=== PATIENT | female | born 1985 | race Caucasian/White ===

== ENCOUNTER 2021-08-09 18:53 | Emergency (ER) | payer OTHER, SELFPAY ==
--- NOTE | ~2021-08-09 | XR_ITS ---
XR cervical spine 4-5V DATE: 08/09/2021 19:44 INDICATION: Struck in the back of the head. Posterior headache. TECHNIQUE: AP, lateral, open-mouth, odontoid, bilateral oblique views, swimmer view COMPARISON: None FINDINGS: There is reversal of cervical curvature which may be due to muscle spasm. C1 and C2 are normally aligned and the odontoid process is intact. No fracture or dislocation or locked facet or prevertebral soft tissue swelling. There is no signific ant bony encroachment upon the neural foramina. Cervical interspaces are preserved. IMPRESSION: Reversal of cervical curvature, which may be due to muscle spasm Reviewed, dictated and finalized at location A.
[2021-08-09 19:00] VITALS: BP 114/74; PULSE 54; RESP 18; TEMP 37.1; O2SAT 100
--- NOTE | 2021-08-09 19:03 | ED.HEATRA ---
HPI - Head Injury General Chief complaint: Headache Stated complaint: Hit in head with ball doesn't feel right Time Seen by Provider: 08/09/21 19:03 Source: patient and RN notes reviewed History of Present Illness HPI Narrative: Patient is a 36-year-old female who presents the urgent care with complaints of a head injury and not feeling right . Patient states that she got hit in the back of her head with a kickball at school today. 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 Patient states that she did stay at school for the rest of the day, took Excedrin for her headache, and denies of any vomiting. Patient stayed until this evening, working the book fair during parent-teacher conferences. Patient states that she typically feels nauseated if she does not eat and patient has not had a meal since lunch today. Patient states that she is currently not having any nausea. Patient is reporting of the posterior neck pain. States that she has not dizzy but feels that she has brain fog or like she is drunk or hung over . Patient did drive herself to the facility. No obvious neuro deficits noted. Patient speaking in full sentences without difficulty. Denies of any confusion. No other acute complaints. No acute distress noted. Patient aware of the plan of care. Some parts of this dictation were generated by voice recognition software and may contain typographical and/or grammatical inaccuracies. Related Data Home Medications Medication Instructions Recorded Confirmed levonorgestrel 20 mcg/24 hours (7 1 device I-UTERINE ONCE 10/28/19 11/01/20 yrs) 52 mg intrauterine device Allergies Allergy/AdvReac Type Severity Reaction Status Date / Time No Known Allergies Allergy Unknown Verified 11/01/20 09:28 Review of Systems Review of Systems: CONSTITUTIONAL: Denies fever, chills, or sweats. EYES: Denies visual changes, redness, or discharge. ENT: Denies rhinorrhea, congestion, sore throat, or otalgia. Reports of posterior neck pain with movement CARDIOVASCULAR: Denies chest pain, palpitations, or edema. RESPIRATORY: Denies cough or dyspnea. GASTROINTESTINAL: Denies abdominal pain, vomiting, or diarrhea. Reports of nausea GENITOURINARY: Denies dysuria or hematuria. SKIN: Denies rash or itching. MUSCULOSKELETAL: Denies back pain, joint pain, or myalgia. NEUROLOGIC: Reports of intermittent headaches and brain fog due to head injury All other systems reviewed are negative, except as documented in HPI. [facility] Past Medical History Medical History Arthritis Vaginal delivery x 2 Surgical History Surgical History H/O wrist surgery [place] teeth removed Family History Family History Other Cerebrovascular accident Heart disease Social History Social History Smoking status: Never smoker Comments At the time of my signature, I reviewed and agree with the nursing past medical, surgical, social, and family history. There is no relevant family history pertinent to the patient complaint. Exam Narrative: GENERAL: This is a well-nourished, well-developed patient, in no apparent distress. HEAD: normocephalic, atraumatic. EYES: PERRL. Sclera clear/white. Vision is grossly intact. EARS: External ears normal, auditory canals clear and without drainage, TMs normal without perforation. Hearing grossly intact. NOSE: External nose normal with no obvious nasal discharge, nares without redness, no rhinorrhea. THROAT: Mucous membranes moist, posterior pharynx clear. NECK: Neck supple, non-tender; mild pain with chin tuck and head tilt; flexion normal. No crepitus or step-off on palpation CARDIOVASCULAR: Regular rate and rhythm
== END 2021-08-09 19:57 | disposition home or self-care (01) ==
PROVIDERS: Emergency Provider Nurse Practitioner Family; PCP Family Medicine
DX: F07.81 Postconcussional syndrome (principal); M62.838 Other muscle spasm; M19.90 Unspecified osteoarthritis, unspecified site
CPT/HCPCS: 72050; 99213; G0463